=== PATIENT | male | born 1955 | race Caucasian/White ===

== ENCOUNTER 2019-04-22 11:47 | Emergency (ER) | payer OTHER, MEDICAID ==
[~2019-04-22] VITALS: Ht 172.7 cm; Wt 72.6 kg
--- NOTE | 2019-04-22 11:47 | NUR ---
Patient BIBA ACLS accompanied by [facility], transferred to bed 1. RN evaluating patient at bedside.
[2019-04-22 11:50] VITALS: BP 183/122
[2019-04-22] MEDS ORDERED: LABETALOL 100 MG/20 ML VIAL IVP ONE (12:00)
[2019-04-22] MEDS ORDERED: NACL 0.9% 1,000 ML IV ONE (12:00)
[2019-04-22] MEDS ORDERED: METOCLOPRAMIDE 10 MG/2 ML INJ VIAL IVP ONE (12:00)
[2019-04-22] MEDS ORDERED: KETOROLAC 30 MG/ML VIAL IVP ONE (12:00)
--- NOTE | 2019-04-22 12:00 | NUR ---
PT TO ED WITH C/O HEADACHE AND BLURRY VISION R/T HTN. PT HAS BEEN NONCOMLIANT WITH HOME BP MEDS. NO NEURO DEFECITS NOTED. PT PLACED ONTO ALL CARDAIC MONITORS. IN BED FOR MD ALFRED. WILL CONTINUE TO ASSESS.
--- NOTE | 2019-04-22 12:16 | NUR ---
Patient taken to CT scan via gurney by [employer].
[2019-04-22 12:21] LABS: BASOPHILS # (AUTO) 0.1 K/uL (0.00-0.22); BASOPHILS % (AUTO) 0.7 % (0.0-2.0); EOSINOPHILS # (AUTO) 0.3 K/uL (0-0.4); EOSINOPHILS % (AUTO) 3.5 % (0.0-4.0); HEMATOCRIT 43.1 % (36-52); HEMOGLOBIN 14.8 g/dL (12.0-18.0); LYMPHOCYTES # (AUTO) 1.9 K/uL (2.0-11.5); LYMPHOCYTES % (AUTO) 23.2 % (20.5-51.1); MEAN CORPUSCULAR HEMOGLOBIN 34 pg (27-31); MEAN CORPUSCULAR HGB CONC 34 g/dL (33-37); MEAN CORPUSCULAR VOLUME 100.5 fL (80-94); MONOCYTES # (AUTO) 0.5 K/uL (0.8-1.0); MONOCYTES % (AUTO) 6.4 % (1.7-9.3); NEUTROPHILS # (AUTO) 5.5 K/uL (1.8-7.7); NEUTROPHILS % (AUTO) 66.2 % (42.2-75.2); PLATELET COUNT (AUTO) 218 K/uL (140-450); RED BLOOD CELL COUNT(AUTO) 4.28 MIL/uL (4.20-6.10); WHITE BLOOD COUNT (AUTO) 8.4 K/uL (4.8-10.8)
[2019-04-22 12:30] LABS: ANION GAP 13.8 (8-16); CARBON DIOXIDE 26.2 mmol/L (21-32); CREATININE 1.9 mg/dL (0.7-1.3)
--- NOTE | 2019-04-22 12:57 | NUR ---
Patient appears to be resting in bed. Vital Signs within normal limits. Respirations even and unlabored.
[2019-04-22] MEDS ORDERED: amLODIPine 5 MG TAB PO SCH (13:22)
[2019-04-22] MEDS ORDERED: POTASSIUM CHLORIDE 10 MEQ TABER PO ONE (13:35)
[2019-04-22 14:04] VITALS: BP 119/71
--- NOTE | 2019-04-22 14:04 | NUR ---
Patient discharged with v/s stable. Written and verbal after care instructions given and explained. Patient verbalized understanding. Ambulatory with steady gait. All questions addressed prior to discharge. Advised to follow up with PMD. Pt provided with meal and bus pass.
== END 2019-04-22 14:04 | disposition home or self-care (01) ==
LOC: MED 11:47
DX: I16.0 Hypertensive urgency (principal); E87.6 Hypokalemia; N17.9 Acute kidney failure, unspecified; I10 Essential (primary) hypertension
CPT/HCPCS: 36415; 70450; 80048; 84484; 85025; 96374; 96375; 99284; J1885; J2765; J3490; J7030

== ENCOUNTER 2019-05-18 15:07 | Emergency (ER) | payer OTHER, MEDICAID ==
[~2019-05-18] VITALS: Ht 172.7 cm; Wt 72.6 kg
[2019-05-18 15:08] VITALS: BP 167/125
--- NOTE | 2019-05-18 15:10 | NUR ---
64 Y/O M BIBA VIA BLS C/O GENERALIZED BODY ACHES. PAIN LEVEL 10/10, ACHING PRIMARILY IN BILATERAL CALF AREA. PT STATES HE RAN OUT OF HTN AND HIV RX MEDICATION. CURRENT BP 167/125. PT AWAKE ALERT AND ABLE TO AMBULATE TO BED. SAFETY MEASURES IN PLACE: HOB ELEVATED, BED IN LOWEST POSITION, BED RAIL UP X1. ERMD MADE AWARE OF PT STATUS. ALERGIES: NKA MED HX: HTN, DEMENTIA, DEGENERATIVE BONE DISEASE, AND HIV
--- NOTE | 2019-05-18 15:35 | NUR ---
KEISHA HERNÁNDEZ AT BEDSIDE
--- NOTE | 2019-05-18 15:39 | NUR ---
PT HEARD YELLING AT PA STATING "I JUST WANT MY FUCKING PRESCRIPTONS!" INFORMED PATIENT THAT HE NEEDED TO LOWER VOICE AND USE APPROPRIATE LANGUAGE. PT STATED "FUCK YOU WHAT ARE YOU GOING TO DO" SECURITY CALLED.
[2019-05-18 15:40] VITALS: BP 167/125
--- NOTE | 2019-05-18 15:40 | NUR ---
SECURITY AT BEDSIDE. PT STATED "WHAT THE FUCK ARE YOU GOING TO DO BITCH". PT ESCORTED OFF PROPERTY AT THIS TIME.
== END 2019-05-18 15:39 | disposition left against medical advice (07) ==
LOC: MED 15:07
DX: M79.10 Myalgia, unspecified site (principal); R09.81 Nasal congestion; I10 Essential (primary) hypertension; F03.90 Unspecified dementia, unspecified severity, without behavioral disturbance, psychotic disturbance, mood disturbance, and anxiety
CPT/HCPCS: 99281

== ENCOUNTER 2019-05-30 19:34 | Emergency (ER) | payer OTHER, MEDICAID ==
[~2019-05-30] VITALS: Ht 172.7 cm; Wt 72.6 kg
--- NOTE | 2019-05-30 19:34 | NUR ---
PT YARELI BLS. TAKEN TO BED 3
--- NOTE | 2019-05-30 19:40 | NUR ---
Dr. Miller examining patient.
[2019-05-30 19:41] VITALS: BP 182/139
--- NOTE | 2019-05-30 19:45 | NUR ---
PT BIBA C/O RT FOOT PAIN X5 DAYS. DENIES TRAUMA TO FOOT. +CMS. NO APPARENT TRAUMA TO RT FOOT. PT ABLE TO AMBULATE. 10/10 PAIN UPON AMBULATION. NO BRUISING OR SWELLING. PT SITTING IN BED CALM AND PLEASANT. VSS. MEDHX: HTN ALLERGIES: DENIES
[2019-05-30] MEDS ORDERED: IBUPROFEN 600 MG TAB PO ONE (19:55)
--- NOTE | 2019-05-30 20:18 | NUR ---
PT STATES HE WANTS A CAB CALLED AND HE WOULD PAY. PT TO LOBBY TO WAIT FOR CAB TO PICK HIM UP.
--- NOTE | 2019-05-30 20:19 | NUR ---
Patient discharged with v/s stable. Written and verbal after care instructions given and explained. Patient alert, oriented and verbalized understanding of instructions. Ambulatory with to home. All questions addressed prior to discharge. ID band removed. Patient advised to follow up with PMD. Rx of ENTERIC COATED NAPROXEN 500 MG given. Patient educated on indication of medication including possible reaction and side effects. Opportunity to ask questions provided and answered.
[2019-05-30 20:20] VITALS: BP 182/139
== END 2019-05-30 20:19 | disposition home or self-care (01) ==
LOC: MED 19:34
DX: S93.602A Unspecified sprain of left foot, initial encounter (principal); F03.90 Unspecified dementia, unspecified severity, without behavioral disturbance, psychotic disturbance, mood disturbance, and anxiety; I10 Essential (primary) hypertension; F17.210 Nicotine dependence, cigarettes, uncomplicated; Z59.0 Homelessness; X58.XXXA Exposure to other specified factors, initial encounter; Y93.89 Activity, other specified; Y92.89 Other specified places as the place of occurrence of the external cause; Y99.8 Other external cause status
CPT/HCPCS: 99283

== ENCOUNTER 2019-07-26 19:13 | Emergency (ER) | payer OTHER, MEDICAID ==
[~2019-07-26] VITALS: Ht 172.7 cm; Wt 75.7 kg
[2019-07-26 19:25] VITALS: BP 181/102
--- NOTE | 2019-07-26 19:28 | NUR ---
TO LOBBY A/W BED AMBULATORY
--- NOTE | 2019-07-26 21:45 | NUR ---
SEEN AND EXAMINED BY DENILSON WITH ORDER AND CARRIED OUT.
[2019-07-26] MEDS ORDERED: BENAZEPRIL 5 MG TAB PO ONE (21:50)
--- NOTE | 2019-07-26 22:05 | NUR ---
MEDICATED PER ERMDS ORDER, PATIENT TOLERATED WELL.
[2019-07-26 22:35] VITALS: BP 167/90
--- NOTE | 2019-07-26 22:35 | NUR ---
PATIENT WALKED OUT. NO D/C INSTRUCTIONS AND PRESCRIPTIONS GIVEN.
== END 2019-07-26 22:35 | disposition home or self-care (01) ==
LOC: MED 19:13
DX: I10 Essential (primary) hypertension (principal); F03.90 Unspecified dementia, unspecified severity, without behavioral disturbance, psychotic disturbance, mood disturbance, and anxiety; Z76.0 Encounter for issue of repeat prescription
CPT/HCPCS: 99283

== ENCOUNTER 2019-10-18 21:36 | Emergency (ER) | payer OTHER, MEDICAID ==
[~2019-10-18] VITALS: Ht 172.7 cm; Wt 72.6 kg
--- NOTE | 2019-10-18 21:38 | NUR ---
PT BIBA BLS TO ER BED 11
[2019-10-18 21:46] VITALS: BP 157/106
--- NOTE | 2019-10-18 21:46 | NUR ---
64 Y/O MALE C/O VOMITING AND ANXIETY. PT DENIES ANY TRAUMA. PT HAS A DRY NON-PRODUCTIVE COUGH. DENIES DIARRHEA; SKIN IS PINK/WARM/DRY; AAOX4 WITH EVEN AND STEADY GAIT; PT DENIES ANY FEVER, CP, SOB AT THIS TIME; PATIENT STATES PAIN OF 0/10 AT THIS TIME; VSS; PATIENT POSITIONED FOR COMFORT; HOB ELEVATED; BEDRAILS UP X2; BED DOWN AND LOCKED. MEDICAL HX: HTN NKA
--- NOTE | 2019-10-18 21:46 | NUR ---
DR. PAYTON BEDSIDE EVALUATING PT
[2019-10-18] MEDS ORDERED: NACL 0.9% 1,000 ML IV ONE (21:50)
[2019-10-18] MEDS ORDERED: LORazepam 2 MG/ML VIAL IVP ONE (21:50)
[2019-10-18] MEDS ORDERED: FAMOTIDINE 20 MG/2 ML VIAL IVP ONE (21:50)
[2019-10-18] MEDS ORDERED: ONDANSETRON 4 MG/2 ML VIAL IVP ONE (21:50)
[2019-10-18 22:13] LABS: BASOPHILS # (AUTO) 0.1 K/uL (0.00-0.22); BASOPHILS % (AUTO) 0.6 % (0.0-2.0); EOSINOPHILS # (AUTO) 0.2 K/uL (0-0.4); HEMATOCRIT 40.3 % (36-52); HEMOGLOBIN 13.9 g/dL (12.0-18.0); LYMPHOCYTES % (AUTO) 20.7 % (20.5-51.1); MEAN CORPUSCULAR HEMOGLOBIN 34 pg (27-31); MEAN CORPUSCULAR HGB CONC 35 g/dL (33-37); MEAN CORPUSCULAR VOLUME 98.9 fL (80-94); MONOCYTES # (AUTO) 0.6 K/uL (0.8-1.0); MONOCYTES % (AUTO) 6.4 % (1.7-9.3); NEUTROPHILS # (AUTO) 6.8 K/uL (1.8-7.7); NEUTROPHILS % (AUTO) 70.3 % (42.2-75.2); PLATELET COUNT (AUTO) 219 K/uL (140-450); RED BLOOD CELL COUNT(AUTO) 4.07 MIL/uL (4.20-6.10); RED CELL DISTRIBUTION WIDTH 12.9 % (11.6-13.7); WHITE BLOOD COUNT (AUTO) 9.7 K/uL (4.8-10.8)
[2019-10-18 22:29] LABS: ALBUMIN 3.8 g/dL (3.4-5.0); ANION GAP 10.7 (8-16); CARBON DIOXIDE 30.5 mmol/L (21-32); CREATININE 2.4 mg/dL (0.6-1.3); POTASSIUM 3.2 mmol/L (3.5-5.1); TOTAL BILIRUBIN 0.4 mg/dL (0.0-1.0)
--- NOTE | 2019-10-18 22:30 | NUR ---
PT RESTING IN BED IN POSITION OF COMFORT. BED LOW AND LOCKED, 2 SIDERAILS UP, VSS. WILL CONTINUE TO MONITOR.
[2019-10-18 23:12] VITALS: BP 150/98
--- NOTE | 2019-10-18 23:12 | NUR ---
Patient discharged with v/s stable. Written and verbal after care instructions given and explained. Patient alert, oriented and verbalized understanding of instructions. Ambulatory with steady gait. All questions addressed prior to discharge. ID band removed. Patient advised to follow up with PMD. Rx of ZOFRAN/PRILOSEC/HYDROXYZINE given. Patient educated on indication of medication including possible reaction and side effects. Opportunity to ask questions provided and answered. PT WAS GIVEN SULMA PASS AND FOOD.
== END 2019-10-18 23:07 | disposition home or self-care (01) ==
LOC: MED 21:36
DX: F41.9 Anxiety disorder, unspecified (principal); K21.9 Gastro-esophageal reflux disease without esophagitis; R11.10 Vomiting, unspecified; F03.90 Unspecified dementia, unspecified severity, without behavioral disturbance, psychotic disturbance, mood disturbance, and anxiety; I10 Essential (primary) hypertension
CPT/HCPCS: 36415; 80053; 85025; 96361; 96374; 96375; 99284; J2060; J2405; J3490; J7030

== ENCOUNTER 2020-01-05 15:09 | Emergency (ER) | payer OTHER, MEDICAID ==
[~2020-01-05] VITALS: Ht 172.7 cm; Wt 65.8 kg
--- NOTE | 2020-01-05 15:09 | NUR ---
PT BIBA BLS TO ER BED 05 Addendum: 01/05/20 at 1511 by [facility] PT BIBA BLS TO ER BED 05. RN EVALUATING AT BEDSIDE.
[2020-01-05 15:18] VITALS: BP 227/153
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
--- NOTE | 2020-01-05 15:42 | NUR ---
DR ROBLES AT BEDSIDE EXAMINING PT
[2020-01-05] MEDS ORDERED: ACETAMINOPHEN EXTRA STRENGTH 500 MG TAB PO ONE (15:45)
--- NOTE | 2020-01-05 15:54 | NUR ---
LAB AT BEDSIDE
--- NOTE | 2020-01-05 16:15 | NUR ---
DR ROBLES AT BEDSIDE RE-EVALUATING PT
[2020-01-05 16:19] LABS: BASOPHILS # (AUTO) 0.1 K/uL (0.00-0.22); BASOPHILS % (AUTO) 0.9 % (0.0-2.0); EOSINOPHILS # (AUTO) 0.4 K/uL (0-0.4); EOSINOPHILS % (AUTO) 4.6 % (0.0-4.0); HEMATOCRIT 41.9 % (36-52); HEMOGLOBIN 14.5 g/dL (12.0-18.0); LYMPHOCYTES # (AUTO) 1.9 K/uL (2.0-11.5); LYMPHOCYTES % (AUTO) 22.5 % (20.5-51.1); MEAN CORPUSCULAR HEMOGLOBIN 35 pg (27-31); MEAN CORPUSCULAR HGB CONC 35 g/dL (33-37); MEAN CORPUSCULAR VOLUME 99.5 fL (80-94); MONOCYTES # (AUTO) 0.6 K/uL (0.8-1.0); MONOCYTES % (AUTO) 6.6 % (1.7-9.3); NEUTROPHILS # (AUTO) 5.5 K/uL (1.8-7.7); NEUTROPHILS % (AUTO) 65.4 % (42.2-75.2); PLATELET COUNT (AUTO) 205 K/uL (140-450); RED CELL DISTRIBUTION WIDTH 12.7 % (11.6-13.7); WHITE BLOOD COUNT (AUTO) 8.4 K/uL (4.8-10.8)
--- NOTE | 2020-01-05 16:19 | NUR ---
PT REFUSED CT, DR ROBLES MADE AWARE
[2020-01-05 16:34] LABS: ALBUMIN 3.6 g/dL (3.4-5.0); ANION GAP 12.9 (8-16); CARBON DIOXIDE 25.5 mmol/L (21-32); CREATININE 2.4 mg/dL (0.6-1.3); POTASSIUM 3.4 mmol/L (3.5-5.1); TOTAL BILIRUBIN 0.4 mg/dL (0.0-1.0)
--- NOTE | 2020-01-05 16:35 | NUR ---
PT RESTING IN BED, AWAKE AND ALERT. PTS DOG AT BEDSIDE. VSS. WILL CONTINUE TO MONITOR
--- NOTE | 2020-01-05 17:06 | NUR ---
PT RECEIVED SANDWICH, SITTING UPRIGHT WHILE EATING. VSS. NO COMPLAINTS AT THIS TIME.
[2020-01-05 18:03] VITALS: BP 167/110
--- NOTE | 2020-01-05 18:04 | NUR ---
PT DISCHARGED, LEFT WITHOUT PAPERWORK. DID NOT SIGN DISCHARGE. STABLE UPON LEAVING EMERGENCY ROOM.
== END 2020-01-05 18:04 | disposition home or self-care (01) ==
LOC: MED 15:09
DX: R51 Headache (principal); F03.90 Unspecified dementia, unspecified severity, without behavioral disturbance, psychotic disturbance, mood disturbance, and anxiety; I10 Essential (primary) hypertension
CPT/HCPCS: 36415; 80053; 84484; 85025; 93005; 99284

== ENCOUNTER 2020-06-17 14:08 | Emergency (ER) | payer OTHER, MEDICAID ==
[~2020-06-17] VITALS: Ht 172.7 cm; Wt 68.0 kg
[2020-06-17 14:12] VITALS: BP 190/130
--- NOTE | 2020-06-17 14:17 | NUR ---
PT TRIAGED AND SENT TO LOBBY TO WAIT FOR AVAILABLE BED.
--- NOTE | 2020-06-17 16:53 | NUR ---
PT TAKEN TO BED 2.
--- NOTE | 2020-06-17 17:05 | NUR ---
YARELI FOUND SITTING ON SIDEWALK, CALLED 911 STATING HE NEEDS MED REFILL FOR HTN MEDS BUT DOES NOT RECALL WHAT HE TAKES. BEEN OUT OF MEDS X1 WEEK HX HTN, HIV, DEMENTIA
[2020-06-17] MEDS ORDERED: ENALAPRIL 10 MG TAB PO ONE (17:45)
[2020-06-17] MEDS ORDERED: KETOROLAC 60 MG/2 ML VIAL IM ONE (17:45)
[2020-06-17 18:30] VITALS: BP 184/130
--- NOTE | 2020-06-17 19:41 | NUR ---
Patient medically cleared for discharge by MD. Advised to follow up with PCP or return to ED if symptoms return or worsen. No IV placed. Patient is homeless, resourses given and Pharmacy 2 page list. Patint angry we didn't give him a "supply of meds for a few days until he can get script refilled." Given copy of discharge instructions and script x2, patient threw instructions and resource list in the trash. Patient asking for food MELISSA Burnett asked for food and bus pass or taxi voucher. Patient verbalized understanding of instructions and prescription. Gait steady, ID band removed. All belongings taken with patient.
== END 2020-06-17 19:41 | disposition home or self-care (01) ==
LOC: MED 14:08
DX: I10 Essential (primary) hypertension (principal); F03.90 Unspecified dementia, unspecified severity, without behavioral disturbance, psychotic disturbance, mood disturbance, and anxiety; F17.210 Nicotine dependence, cigarettes, uncomplicated; Z76.0 Encounter for issue of repeat prescription
CPT/HCPCS: 96372; 99283; J1885

== ENCOUNTER 2021-02-13 14:07 | Emergency (ER) | payer BC, MEDICAID ==
[~2021-02-13] VITALS: Ht 172.7 cm; Wt 68.0 kg
[2021-02-13 14:21] VITALS: BP 228/142
--- NOTE | 2021-02-13 14:45 | NUR ---
65 Y/O M BIB PD, C/O L FLANK PAIN 05/07. PT STATES HE HAS KIDNEY STONES AND WAS SEEN AT [facility] YESTERDAY. PD PLACED PT ON 5150 HOLD FOR DANGER TO OTHERS. PATIENT SEEMS TO BE EMOTIONALLY LABILE -- FROM HAPPY TO CRYING. PATIENT REPORTS PATIENT FEELS THAT HE DOES NOT CARE WHAT HAPPENS TO HIM "I COULD JUST AND ROT HERE". PATIENT SEEMS TO BE IN DISTRESS BUT CAN BE HELPED BY DISTRACTION. AAOX4. VSS. PMH: DENIES, PD STATES PT IS HIV POSITIVE NKA
--- NOTE | 2021-02-13 16:35 | NUR ---
PATIENT HAS BECOME AGITATED AND IS LEAVING HIS ROOM. SPEAKING OUT IN PROFANITIES. PER PATIENT, "I WOKE UP IN A BAD MOOD" ASKED SECURITY FOR ASSISTANCE.
[2021-02-13] MEDS ORDERED: LORazepam 2 MG/ML VIAL IM PRN (16:55)
[2021-02-13] MEDS ORDERED: diphenhydrAMINE 50 MG/ML VIAL IM ONE (16:55)
[2021-02-13] MEDS ORDERED: HALOPERIDOL IM 5 MG/ML VIAL IM ONE (16:55)
--- NOTE | 2021-02-13 19:13 | NUR ---
Pt report given to BEAN Núñez. Transfer of care at this time.
--- NOTE | 2021-02-13 19:22 | NUR ---
PT. RESTING WITH EYES CLOSED, AND MOUTH OPEN. AUDIBLE SNORING SOUNDS CAN BE HEARD. VOICES NO COMPLAINTS, WILL CONTINUE TO MONITOR
--- NOTE | 2021-02-13 21:17 | NUR ---
PT. AMBULATED WITH STEADY AND EVEN GAIT TO BATHROOM. PT. WAS ABLE TO GIVE URINE SAMPLE AT THIS TIME.
[2021-02-13 22:28] LABS: BARBITURATE, URINE NEGATIVE ng/ml (NEG <=200)
[2021-02-13 22:29] LABS: BENZODIAZEPINE, URINE NEGATIVE ng/mL (NEG <=200); CANNABINOID, URINE NEGATIVE ng/mL (NEG <=50); COCAINE, URINE NEGATIVE ng/mL (NEG <=300); OPIATE, URINE NEGATIVE ng/mL (NEG <=2000); PHENCYCLIDINE SCREEN,URINE NEGATIVE ng/mL (NEG <=25)
--- NOTE | 2021-02-13 22:44 | NUR ---
PT. IN PRONE POSITION, RESTING WITH EYES CLOSED, VOICES NO COMPLAINTS.
[2021-02-13 22:58] LABS: BASOPHILS # (AUTO) 0.1 K/uL (0.00-0.22); BASOPHILS % (AUTO) 1.1 % (0.0-2.0); EOSINOPHILS # (AUTO) 0.2 K/uL (0-0.4); EOSINOPHILS % (AUTO) 2.7 % (0.0-4.0); HEMATOCRIT 40.2 % (36-52); HEMOGLOBIN 13.8 g/dL (12.0-18.0); LYMPHOCYTES # (AUTO) 2.4 K/uL (2.0-11.5); LYMPHOCYTES % (AUTO) 28.2 % (20.5-51.1); MEAN CORPUSCULAR HEMOGLOBIN 33 pg (27-31); MEAN CORPUSCULAR HGB CONC 34 g/dL (33-37); MEAN CORPUSCULAR VOLUME 95.7 fL (80-94); MONOCYTES # (AUTO) 0.9 K/uL (0.8-1.0); MONOCYTES % (AUTO) 10.3 % (1.7-9.3); NEUTROPHILS # (AUTO) 4.9 K/uL (1.8-7.7); NEUTROPHILS % (AUTO) 57.7 % (42.2-75.2); PLATELET COUNT (AUTO) 244 K/uL (140-450); RED CELL DISTRIBUTION WIDTH 11.9 % (11.6-13.7); WHITE BLOOD COUNT (AUTO) 8.5 K/uL (4.8-10.8)
[2021-02-13 23:23] LABS: ACETAMINOPHEN < 0.5 ug/ml (10-30); ALBUMIN 3.4 g/dL (3.4-5.0); ANION GAP 12.1 (8-16); ASPARTATE AMINOTRANSFERASE 18 U/L (15-37); CHLORIDE 105 mmol/L (98-107); CREATININE 2.4 mg/dL (0.6-1.3); GFR ARICAN-AMERICAN 35 mL/min (>90); GLUCOSE 103 mg/dL (74-106); POTASSIUM 3.1 mmol/L (3.5-5.1); SALICYLATE < 2.8 mg/dL (2.8-20.0); SODIUM SERUM 140 mmol/L (136-145); TOTAL BILIRUBIN 0.5 mg/dL (0.0-1.0); UREA NITROGEN, BLOOD 31 mg/dL (7-18)
[2021-02-13] MEDS ORDERED: POTASSIUM CHLORIDE 10 MEQ TABER PO ONE (23:50)
--- NOTE | 2021-02-14 01:09 | NUR ---
PT. LAYING COMFORTABLY WITH BLANKET ON AND EYES CLOSED IN WEI POSITION, VOICES NO COMPLAINTS AT THIS TIME.
--- NOTE | 2021-02-14 04:38 | NUR ---
PT. IN SUPINE POSITION, LAYING COMFORTABLY IN BED WITH EYES CLOSED. BREATHING UNLABORED AND EVEN. VOICES NO COMPLAINTS AT THIS TIME.
--- NOTE | 2021-02-14 04:49 | NUR ---
PT. AMBULATED TO BATHROOM WITH EVEN AND STEADY GAIT. PT. STATES "I'M THIRSTY" AND WAS OFFERED APPLE JUICE. VOICES NO COMPLAINTS.
--- NOTE | 2021-02-14 06:30 | NUR ---
PT. IN POSITION, RESTING WITH EYES CLOSED. AUDIBLE SNORING SOUNDS CAN BE HEARD. VOICES NO COMPLAINTS.
[2021-02-14 06:35] VITALS: BP 170/105
--- NOTE | 2021-02-14 07:15 | NUR ---
holly bazan and rina completed and taken to lab.
--- NOTE | 2021-02-14 07:21 | NUR ---
Report given to BEAN Peterson. Transfer of care at this time.
--- NOTE | 2021-02-14 07:21 | NUR ---
REPORT RECEIVED FROM PREVIOUS NURSE, TRANSFER OF CARE AT THIS TIME
--- NOTE | 2021-02-14 08:59 | NUR ---
PT ALERT AND AWAKE, BREATHING EVEN AND UNLABORED. NO DISTRESS NOTED. ALL NEEDS MET AT THIS TIME WILL CONTINUE TO MONITOR. SITTER REMAINS AT BEDSIDE
--- NOTE | 2021-02-14 11:37 | NUR ---
PT CURRENTLY ON VIDEOCALL WITH TELEPSYCHE
--- NOTE | 2021-02-14 12:29 | NUR ---
pt d/c without signing paperwork, pt refused. pt provided with homeless skilled nursing resources and meal. provided with [facility] referral for post check up. IV site removed, bleeding controlled with sterile gauze and reinforced with tape.
== END 2021-02-14 12:29 | disposition home or self-care (01) ==
LOC: MED 14:07
DX: R45.1 Restlessness and agitation (principal); Z20.822 Contact with and (suspected) exposure to COVID-19; E87.6 Hypokalemia; I12.9 Hypertensive chronic kidney disease with stage 1 through stage 4 chronic kidney disease, or unspecified chronic kidney disease; N18.9 Chronic kidney disease, unspecified; F03.90 Unspecified dementia, unspecified severity, without behavioral disturbance, psychotic disturbance, mood disturbance, and anxiety; Z87.442 Personal history of urinary calculi
CPT/HCPCS: 36415; 80053; 80305; 85025; 87426; 96374; 96375; 99284; G0480; G0482; J1200; J1630; J2060; U0003; 99285

== ENCOUNTER 2021-07-11 07:54 | Emergency (ER) | payer BC, MEDICAID ==
[~2021-07-11] VITALS: Ht 185.4 cm; Wt 72.6 kg
--- NOTE | 2021-07-11 07:56 | NUR ---
EBENEZER DOWNS VIA GURNEY TO TENT.
[2021-07-11 08:18] VITALS: BP 145/103
--- NOTE | 2021-07-11 08:21 | NUR ---
TENT 1.
--- NOTE | 2021-07-11 08:25 | NUR ---
Agueda cordova in ED - 07/11/21 at 1107 by [facility] HOMELESS. DOWNS C/O COUGH & R WRIST PAIN.
--- NOTE | 2021-07-11 08:25 | NUR ---
HOMELESS. BIBA C/O COUGH & R WRIST PAIN.HE REFUSED TO ANSWER ANY QUESTIONS. HE STATED HE WANTED TO TALK TO SW.
[2021-07-11] MEDS ORDERED: IBUPROFEN 400 MG TAB PO ONE (08:35)
[2021-07-11] MEDS ORDERED: NAPR-1704 PO (08:46)
--- NOTE | 2021-07-11 08:58 | NUR ---
PT PLACED IN RIGHT VELCRO WRIST SPLINT CMS WNL BEFORE AND AFTER.
--- NOTE | 2021-07-11 10:22 | NUR ---
CALLED AND SPOKE TO MANDA, SHE WILL FORWARD TO THE CANNERY WORKER TO COME AND SPEAK WITH THE PATIENT.
--- NOTE | 2021-07-11 10:59 | NUR ---
SW AT TENT 1.
[2021-07-11 12:00] VITALS: BP 145/103
== END 2021-07-11 12:00 | disposition home or self-care (01) ==
LOC: MED 07:54
DX: S63.501A Unspecified sprain of right wrist, initial encounter (principal); F03.90 Unspecified dementia, unspecified severity, without behavioral disturbance, psychotic disturbance, mood disturbance, and anxiety; I10 Essential (primary) hypertension; F17.290 Nicotine dependence, other tobacco product, uncomplicated; Z87.442 Personal history of urinary calculi; X58.XXXA Exposure to other specified factors, initial encounter; Y93.89 Activity, other specified; Y92.89 Other specified places as the place of occurrence of the external cause; Y99.8 Other external cause status
CPT/HCPCS: 99283

== ENCOUNTER 2021-11-29 10:10 | Emergency (ER) | payer BC, MEDICAID ==
[~2021-11-29] VITALS: Ht 182.9 cm; Wt 67.1 kg
[~2021-11-29 10:10] MED LIST: NAPR-1704 PO
[2021-11-29 10:18] VITALS: BP 133/95
--- NOTE | 2021-11-29 10:21 | NUR ---
[facility]
--- NOTE | 2021-11-29 11:00 | NUR ---
DR WEISS AT BEDSIDE FOR EVAL
[2021-11-29] MEDS ORDERED: methylPREDNISolone SS 40 MG in WATER STERILE 1 ML IM ONE (11:10)
[2021-11-29] MEDS ORDERED: KETOROLAC 30 MG/ML VIAL IM ONE (11:10)
[2021-11-29] MEDS ORDERED: WATER STERILE 10 ML MC ONE (11:17)
[2021-11-29] MEDS ORDERED: methylPREDNISolone SS 40 MG/ML VIAL ONE (11:17)
--- NOTE | 2021-11-29 11:26 | NUR ---
RAD AT BEDSIDE
--- NOTE | 2021-11-29 11:41 | NUR ---
OFFERED SANDWICHES, TOLERATED WELL
--- NOTE | 2021-11-29 11:59 | NUR ---
PT IN BED ASLEEP AT THIS TIME, SERVICE DOG AT BEDSIDE
[2021-11-29] MEDS ORDERED: IBUP-1842 PO (12:42)
[2021-11-29] MEDS ORDERED: DICL100G5 TP (12:42)
[2021-11-29 13:22] VITALS: BP 133/95
--- NOTE | 2021-11-29 13:22 | NUR ---
Patient discharged with v/s stable. Written and verbal after care instructions given and explained. Patient alert, oriented and verbalized understanding of instructions. Ambulatory with steady gait. All questions addressed prior to discharge. ID band removed. Patient advised to follow up with PMD. Rx of diclofenac, ibuprofen (sent) given. Patient educated on indication of medication including possible reaction and side effects. Opportunity to ask questions provided and answered. copy of radiology
== END 2021-11-29 13:22 | disposition home or self-care (01) ==
LOC: MED 10:10
DX: M76.51 Patellar tendinitis, right knee (principal); M76.52 Patellar tendinitis, left knee; F03.90 Unspecified dementia, unspecified severity, without behavioral disturbance, psychotic disturbance, mood disturbance, and anxiety; I10 Essential (primary) hypertension; Z79.899 Other long term (current) drug therapy; Z87.442 Personal history of urinary calculi
CPT/HCPCS: 73562; 96372; 99284; J1885; J2920

== ENCOUNTER 2022-04-02 11:14 | Emergency (ER) | payer BC, MEDICAID ==
[~2022-04-02] VITALS: Ht 172.7 cm; Wt 72.6 kg
[~2022-04-02 11:14] MED LIST changes: +DICL100G5 TP; +IBUP-1842 PO
--- NOTE | 2022-04-02 11:20 | NUR ---
YARELI ALS TO ER BED 5
[2022-04-02 11:21] VITALS: BP 107/68
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
[2022-04-02 13:00] VITALS: BP 111/75
--- NOTE | 2022-04-02 13:00 | NUR ---
IV removed, catheter intact and site benign. Applied folded 4x4 gauze and tape to stop bleeding.
--- NOTE | 2022-04-02 13:01 | NUR ---
Patient discharged with v/s stable. Written and verbal after care instructions ABOUT [facility]NCOPE given and explained. Patient verbalized understanding. Ambulatory with steady gait. All questions addressed prior to discharge. Advised to follow up with PMD. PROVIDED WITH UBER BACK TO RETIREMENT.
== END 2022-04-02 13:01 | disposition home or self-care (01) ==
LOC: MED 11:14
DX: R55 Syncope and collapse (principal); R42 Dizziness and giddiness; F03.90 Unspecified dementia, unspecified severity, without behavioral disturbance, psychotic disturbance, mood disturbance, and anxiety; I10 Essential (primary) hypertension; F17.200 Nicotine dependence, unspecified, uncomplicated; Z87.442 Personal history of urinary calculi; Z79.899 Other long term (current) drug therapy
CPT/HCPCS: 93005; 99283